=== PATIENT | male | born 1955 | race Caucasian/White ===

== ENCOUNTER 2016-09-13 10:13 | Emergency (ER) | payer OTHER ==
[~2016-09-13] VITALS: Ht 177.8 cm; Wt 84.5 kg
[~2016-09-13 10:13] MED LIST: AMLO5TAB2 PO; ENAL10TA PO; HYDR-3583 PO; HYDR25TA5 PO; INDO25CA PO; NIAC500T52 PO; OMEG100010 PO; PRAV40TA2 PO
[2016-09-13 10:14] VITALS: PULSE 72; RESP 15; TEMP 98; O2SAT 97
[2016-09-13 10:28] VITALS: BP_SYST 200; BP_SYST 226; BP_DIAS 111; BP_DIAS 99; PULSE 76; RESP 18; O2SAT 98
[2016-09-13] MEDS ORDERED: cloNIDine HCL 0.2 MG TAB PO ONE (11:00)
[2016-09-13 11:02] LABS: BLOOD, URINE NEG (NEG); GLUCOSE,URINE NEG (NEG); KETONE, URINE NEG (NEG); NITRITE,URINE NEG (NEG)
[2016-09-13 11:14] LABS: AUTOMATED NEUTROPHIL # 9.4 TH/MM3 (1.8-7.7); BASOPHIL # 0.4 TH/MM3 (0-0.2); EOSINOPHIL # 0.1 TH/MM3 (0-0.4); EOSINOPHIL % 0.8 % (0.0-4.0); HEMATOCRIT 51.2 % (39.0-51.0); HEMO FLAGS DIFF FINAL; LYMPH % 21.6 % (9.0-44.0); MEAN CELL VOLUME 95.2 FL (80.0-100.0); MEAN CORPUSCULAR HEMOGLOBIN 32.8 PG (27.0-34.0); MEAN CORPUSCULAR HGB CONC 34.4 % (32.0-36.0); MONO % 6.4 % (0.0-8.0); NEUT % 68.2 % (16.0-70.0); PLATELET COUNT 180 TH/MM3 (150-450); RED BLOOD COUNT 5.38 MIL/MM3 (4.50-5.90); RED CELL DISTRIBUTION WIDTH 12.1 % (11.6-17.2); WHITE BLOOD COUNT 13.8 TH/MM3 (4.0-11.0)
[2016-09-13 11:17] LABS: COMMENT (UR) CULT NOT INDICATED; CULTURE IF INDICATED CULT NOT INDICATED; METHOD OF COLLECTION CLEAN CATCH; RBC, URINE 0-3 /hpf (0-3); SQUAMOUS EPITHELIAL CELL URINE 0-5 /hpf (0-5); URINE COLOR YELLOW (YELLW/STRAW)
[2016-09-13 11:24] LABS: CHLORIDE 101 MEQ/L (98-107); POTASSIUM 3.8 MEQ/L (3.5-5.1); SODIUM (NA) 139 MEQ/L (136-145)
[2016-09-13 11:28] LABS: ANION GAP 11 MEQ/L (5-15); BICARBONATE 26.7 MEQ/L (21.0-32.0); BLOOD UREA NITROGEN 12 MG/DL (7-18); MAGNESIUM 2.3 MG/DL (1.5-2.5)
[2016-09-13 11:31] LABS: ALT (GPT) 73 U/L (12-78); AST (GOT) 39 U/L (15-37); GLOMERULAR FILTRATION RATE 87 ML/MIN (>89)
[2016-09-13 11:32] LABS: TOTAL BILIRUBIN ADULT 1.3 MG/DL (0.2-1.0)
[2016-09-13 11:34] LABS: ALKALINE PHOSPHATASE 88 U/L (45-117)
[2016-09-13] MEDS ORDERED: CLON0.2T PO (11:51)
--- NOTE | 2016-09-13 11:52 | PD ---
HPI Chief Complaint: Hypertension Time Seen by Provider: 10:42 Travel History International Travel<30 days: No Contact w/Intl Traveler<30days: No Traveled to known affect area: No History of Present Illness HPI This 60-year-old male presents with complaint of high blood pressure. He has a history of hypertension and is currently on Vasotec. He notes that in the past he was on amlodipine but is not sure why is not on it now area is not having chest pain or shortness of breath. He's been having some left-sided abdominal pain for which she is seeing his doctor. He has an appointment on Wednesday. The pain is somewhat out of to what it has been. He checked his blood pressure today so he is for treatment PFS Past Medical History High Cholesterol: Yes Gout: Yes Hypertension: Yes Medical other: Yes (CHRONIC BACK PAIN) Influenza Vaccination: No ?: Not Past Surgical History Surgical History: No Previous Surgery Social History Alcohol Use: Yes (2 VODKAS DAILY) Tobacco Use: Yes (1PPD) Substance Use: No Allergies-Medications (Allergen,Severity, Reaction): Coded Allergies: Penicillin (Verified Allergy, Unknown, 09/13/16) Reported Meds & Prescriptions Reported Meds & Active Scripts Active Hydrocodone-Acetaminophen 10-325 mg Tab 1 Tab PO Q6H PRN Indomethacin 25 Mg Cap 25 Mg PO TID PRN Take with food, milk, or antacids to decrease stomach adverse effects. Reported Dewart 3 1000 mg (Dewart-3 Fatty Acids) 1 Cap Cap 2,000 Mg PO BID Niacin ER (Niacin) 500 Mg Tab 500 Mg PO DAILY Hydrochlorothiazide 25 Mg Tab 25 Mg PO DAILY Enalapril (Enalapril Maleate) 10 Mg Tab 10 Mg PO BID Review of Systems General / Constitutional: No: Fever, Chills HENT: No: Headaches, Vertigo Cardiovascular: No: Chest Pain or Discomfort, Palpitations Respiratory: No: Shortness of Breath Gastrointestinal: Positive: Abdominal Pain Genitourinary: No: Urgency, Frequency Musculoskeletal: No: Myalgias Skin: No Rash Psychiatric: No: Anxiety Physical Exam Narrative GENERAL: Well-developed male blood pressure is initially 200/99 SKIN: Focused skin assessment warm/dry. HEAD: Atraumatic. Normocephalic. EYES: Pupils equal and round. No scleral icterus. No injection or drainage. ENT: No nasal bleeding or discharge. Mucous membranes pink and moist. NECK: Trachea midline. No JVD. CARDIOVASCULAR: Regular rate and rhythm. No murmur appreciated. RESPIRATORY: No accessory muscle use. Clear to auscultation. Breath sounds equal bilaterally. GASTROINTESTINAL: Abdomen soft, non-tender, nondistended. Hepatic and splenic margins not palpable. MUSCULOSKELETAL: No obvious deformities. No clubbing. No cyanosis. No edema. NEUROLOGICAL: Awake and alert. No obvious cranial nerve deficits. Motor grossly within normal limits. Normal speech. PSYCHIATRIC: Appropriate mood and affect; insight and judgment normal. Data Data Last Documented VS Vital Signs Date Time Temp Pulse Resp B/P Pulse Ox O2 Delivery O2 Flow Rate FiO2 09/13/16 10:28 76 98 Room Air 09/13/16 10:28 18 226/111 200/99 09/13/16 10:14 98.0 Orders Electrocardiogram (09/13/16 10:48) Complete Blood Count With Diff (09/13/16 10:48) Comprehensive Metabolic Panel (09/13/16 10:48) Urinalysis - C+S If Indicated (09/13/16 10:48) Magnesium (Mg) (09/13/16 10:48) Clonidine (Catapres) (09/13/16 11:00) Labs Laboratory Tests Test 09/13/16 10:55 White Blood Count 13.8 TH/MM3 Red Blood Count 5.38 MIL/MM3 Hemoglobin 17.6 GM/DL Hematocrit 51.2 % Mean Corpuscular Volume 95.2 FL Mean Corpuscular Hemoglobin 32.8 PG Mean Corpuscular Hemoglobin 34.4 % Concent Red Cell Distribution Width 12.1 % Platelet Count 180 TH/MM3 Mean Platelet Volume 9.6 FL Neutrophils (%) (Auto) 68.2 % Lymphocytes (%) (Auto) 21.6 % Monocytes (%) (Auto) 6.4 % Eosinophils (%) (Auto) 0.8 % Basophils (%) (Auto) 3.0 % Neutrophils # (Auto) 9.4 TH/MM3 Lymphocytes # (Auto) 3.0 TH/MM3 Monocytes # (Auto) 0.9 TH/MM3 Eosinophils # (Auto) 0.1 TH/MM3 Basophils # (Auto) 0.4 TH/MM3 CBC Comment DIFF FINAL Differential Comment Urine Collection Type CLEAN CATCH Urine Color YELLOW Urine Turbidity CLEAR Urine pH 6.0 Urine Specific [place] 1.005 Urine Protein NEG mg/dL Urine Glucose (UA) NEG mg/dL Urine Ketones NEG mg/dL Urine Occult Blood NEG Urine Nitrite NEG Urine Bilirubin NEG Urine Leukocyte Esterase NEG Urine RBC 0-3 /hpf Urine Squamous Epithelial 0-5 /hpf Cells Microscopic Urinalysis Comment CULT NOT INDICATED Urine Collection Time 10:55 Sodium Level 139 MEQ/L Potassium Level 3.8 MEQ/L Chloride Level 101 MEQ/L Carbon Dioxide Level 26.7 MEQ/L Anion Gap 11 MEQ/L Blood Urea Nitrogen 12 MG/DL Creatinine 0.89 MG/DL Estimat Glomerular Filtration 87 ML/MIN Rate Random Glucose 122 MG/DL Calcium Level 9.8 MG/DL Magnesium Level 2.3 MG/DL Total Bilirubin 1.3 MG/DL Aspartate Amino Transf 39 U/L (AST/SGOT) Alanine Aminotransferase 73 U/L (ALT/SGPT) Alkaline Phosphatase 88 U/L Total Protein 8.3 GM/DL Albumin 4.6 GM/DL MDM Medical Decision Making Medical Screen Exam Complete: Yes Emergency Medical Condition: Yes Medical Record Reviewed: Yes Differential Diagnosis Differential includes hypertension, Narrative Course Patient states his been taking his medication his pressure still elevated. He was given clonidine and his pressures come down to 156/90. He feels better. He is stable for discharge. He sees his doctor on Wednesday. I considered adding and second medication but instead on prescribe clonidine. The patient has a monitor at home when he is only to take it as pressure is elevated. Diagnosis Primary Impression: Hypertension Scripts Clonidine 0.2 Mg Tab0.2 Mg PO BID #30 TAB Ref 0 Prov:Nii Watt MD 09/13/16 Disposition: DISCHARGE HOME Condition: Stable Nii Watt MD September 13, 2016 11:52
[2016-09-13 11:59] VITALS: BP 155/88
--- NOTE | 2016-09-14 11:28 | EKG ---
Date Performed: 09/13/2016 Time Performed: 10:52:20 PTAGE: 60 years EKG: Sinus rhythm Leftward axis Inferior infarct - age undetermined Lateral T wave changes are nonspecific Abnormal EC G PREVIOUS TRACING : 02/12/1997 16.09 DOCTOR: Duke Downing Interpretating Date/Time 09/14/2016 11:22:13
[2016-09-16] MEDS ORDERED: AMLO5TAB2 PO ×2 (10:43→11:58)
[2016-09-23] MEDS ORDERED: PRAV40TA2 PO (14:03)
[2016-09-23] MEDS ORDERED: HYDR25TA5 PO (14:03)
== END 2016-09-13 12:02 | disposition home or self-care (01) ==
LOC: PHED 10:13
DX: I10 Essential (primary) hypertension (principal); R94.31 Abnormal electrocardiogram [ECG] [EKG]; E78.00 Pure hypercholesterolemia, unspecified; M10.9 Gout, unspecified; F17.210 Nicotine dependence, cigarettes, uncomplicated
CPT/HCPCS: 80053; 81001; 83735; 85025; 93005